=== PATIENT | female | born 1995 | race Caucasian/White ===

== ENCOUNTER 2016-07-14 03:15 | Emergency (ER) | payer OTHER ==
--- NOTE | ~2016-07-14 | CR150 ---
[facility] A Service of [facility] & [facility] / [facility] RADIOLOGY TEXT RESULTS PATIENT: TEODORO DRAPER LOCATION: SED : [birth year] UNIT #: [id number] AGE: [address]: Leonardo Kat MD SEX: F ORDER DR: [id number] [place] [id number] E MR#: [id number] Acc #: [id number] NAME: TEODORO DRAPER : 1995 SEX: F STUDY DATE/TIME: 07/14/2016 3:57 UNIT: SED ROOM: STUDY DESCRIPTION: CR Hip Min 2 Views Lt Attending Physician: Leonardo Kat M.D. Ordering Physician: Leonardo Kat M.D. Primary Care Physician: Primary Care Physician No MEDICAL IMAGING REPORT This report is preliminary unless electronic signature is present. EXAM Left hip INDICATION Left hip pain. Fall off a pole at work. FINDINGS 2 views of the left hip without comparison. There is no acute fracture or dislocation. Sacroiliac joints are normal. IMPRESSION Negative left hip. Dictated by... Aman Zavala M.D. THIS IS AN ELECTRONICALLY VERIFIED REPORT Aman Zavala M.D. at 07/14/2016 5:43 AM CARMEN/cat TD: 07/14/2016 05:01 JOB #: [id number] MEDICAL IMAGING REPORT Page 1 of 1
--- NOTE | ~2016-07-14 | CR172 ---
[facility]. [facility] A Service of [facility] & [facility] RADIOLOGY TEXT RESULTS PATIENT: TEODORO DRAPER LOCATION: SED : [birth year] UNIT #: [id number] AGE: [address]: Leonardo Kat MD SEX: F ORDER DR: [id number] [place] [id number] E MR#: [id number] Acc #: [id number] NAME: TEODORO DRAPER : 1995 SEX: F STUDY DATE/TIME: 07/14/2016 3:57 UNIT: SED ROOM: STUDY DESCRIPTION: CR Knee 3 Views Lt Attending Physician: Leonardo Kat M.D. Ordering Physician: Leonardo Kat M.D. Primary Care Physician: Primary Care Physician No MEDICAL IMAGING REPORT This report is preliminary unless electronic signature is present. EXAM Left knee INDICATIONS Fall off a pole at work. Left knee pain. FINDINGS 2 views of the left knee without comparison. There is no acute fracture or dislocation. No knee effusion. IMPRESSION Negative left knee. Dictated by... Aman Zavala M.D. THIS IS AN ELECTRONICALLY VERIFIED REPORT Aman Zavala M.D. at 07/14/2016 5:43 AM Josette TD: 07/14/2016 05:02 JOB #: [id number] MEDICAL IMAGING REPORT Page 1 of 1
--- NOTE | ~2016-07-14 | CR181 ---
[facility]. [facility] A Service of [facility] & [facility] RADIOLOGY TEXT RESULTS PATIENT: TEODORO DRAPER LOCATION: SED : [birth year] UNIT #: [id number] AGE: [address]: Leonardo Kat MD SEX: F ORDER DR: [id number] [place] [id number] E MR#: [id number] Acc #: [id number] NAME: TEODORO DRAPER : 1995 SEX: F STUDY DATE/TIME: 07/14/2016 3:57 UNIT: SED ROOM: STUDY DESCRIPTION: CR Lumbar Spine 2 or 3 Views Attending Physician: Leonardo Kat M.D. Ordering Physician: Leonardo Kat M.D. Primary Care Physician: Primary Care Physician No MEDICAL IMAGING REPORT This report is preliminary unless electronic signature is present. EXAM Lumbar spine INDICATION Fell off a pole at work. Low back pain. FINDINGS 3 views of the lumbar spine compared to 05/23/2013. There is no acute fracture. Mild grade 1 anterolisthesis of L5 on S1 is unchanged. Patient has bilateral L5 pars defects. The sacroiliac joints are within normal limits. IMPRESSION No acute findings in the lumbar spine. Dictated by... Aman Zavala M.D. THIS IS AN ELECTRONICALLY VERIFIED REPORT Aman Zavala M.D. at 07/14/2016 5:43 AM CARMEN/cat TD: 07/14/2016 04:59 JOB #: [id number] MEDICAL IMAGING REPORT Page 1 of 1
[~2016-07-14 03:15] MED LIST: ALBUTEROL17 GM INH; AMOXICILLIN500 M1 PO; DEPO-PROVER150 MG/ML INJ; HYDROCORTISONE0.9 GM TP; IBUPROFEN; NAPROSYN500 MG PO; NO MEDICATIONS; PRENATA CHEWAB1 EAC1 PO; TESSALON PERLE100 M1 PO; ZITHROMAX PO; ZOFRAN ODT4 MG PO
[2016-07-14] MEDS ORDERED: TRAZODONE (03:26)
[2016-07-14] MEDS ORDERED: PROZAC10 M1 (03:26)
[2016-07-14 04:15] LABS: AMPHETAMINE NEG (NEG); BARBITURATES NEG (NEG); BENZODIAZEPINES NEG (NEG); COCAINE NEG (NEG); MARIJUANA NEG (NEG); OPIATES NEG (NEG); TRICYCLIC ANTIDEPRESSANTS NEG (NEG); U METHADONE NEG (NEG)
== END 2016-07-14 04:55 | disposition home or self-care (01) ==
LOC: SED 03:15
PROVIDERS: Emergency Medicine
DX: S73.102A Unspecified sprain of left hip, initial encounter (principal); S83.92XA Sprain of unspecified site of left knee, initial encounter; M54.16 Radiculopathy, lumbar region; M41.9 Scoliosis, unspecified; W01.0XXA Fall on same level from slipping, tripping and stumbling without subsequent striking against object, initial encounter; Y92.9 Unspecified place or not applicable
CPT/HCPCS: 29125; 29260; 29530; 72100; 73502; 73560; 80307; 84703; 99284